=== PATIENT | female | born 1975 | race Two or more races ===

== ENCOUNTER 2023-08-01 09:00 | Emergency (ER) | payer MEDICAID ==
[2023-08-01] VITALS (8 sets, daily range): BP systolic 116–138; BP diastolic 66–85; PULSE 57–68; RESP 16; TEMP 97.8–98.2
[~2023-08-01] VITALS: Ht 162.6 cm; Wt 79.1 kg
[2023-08-01 10:00] LABS: BASOPHILS % (AUTO) 0.8 % (0.0-2.0); EOSINOPHILS % (AUTO) 3.4 % (1.0-6.0); HEMATOCRIT 23.4 % (36-46); LYMPHOCYTES # (AUTO) 1.3 K/uL (1.0-4.8); LYMPHOCYTES % (AUTO) 20.2 % (22.0-44.0); MEAN CORPUSCULAR HEMOGLOBIN 15.4 pg (26.0-34.0); MEAN CORPUSCULAR HGB CONC 28.3 G/dL (31.0-37.0); MEAN CORPUSCULAR VOLUME 55 fL (80-100); MONOCYTES # (AUTO) 0.6 K/uL (0.1-1.0); MONOCYTES % (AUTO) 8.8 % (2.0-9.0); NEUTROPHILS # (AUTO) 4.4 K/uL (1.8-7.7); NEUTROPHILS % (AUTO) 66.8 % (40.0-70.0); PLATELET COUNT (AUTO) 230 K/uL (150-450); RED BLOOD CELL COUNT(AUTO) 4.29 MIL/uL (4.00-5.20); RED CELL DISTRIBUTION WIDTH 18.7 % (11.5-14.5); WHITE BLOOD COUNT (AUTO) 6.6 K/uL (4.5-11.0)
[2023-08-01 10:08] LABS: HEMOGLOBIN 6.6 g/dL (12.0-16.0)
[2023-08-01 10:18] LABS: ANION GAP 4 mmol/L (8-16); CARBON DIOXIDE 29 mmol/L (22-29); CHLORIDE 104 mmol/L (98-107); CREATININE 0.66 mg/dL (0.60-1.30); GLOMERULAR FILTR. RATE CALC > 60 mL/min (>60); GLUCOSE,RANDOM 94 mg/dL (70-110); SODIUM SERUM 137 mmol/L (136-145); TROPONIN I-HIGH SENSITIVITY Less Than 4 ng/L (<51); UREA NITROGEN, BLOOD 11 mg/dL (7-18)
[2023-08-01 10:21] LABS: ALANINE AMINOTRANSFERASE 23 U/L (12-78); ALBUMIN 3.7 g/dL (3.4-5.0); ALKALINE PHOSPHATASE 71 U/L (46-116); ASPARTATE AMINOTRANSFERASE 13 U/L (15-37); BILIRUBIN,TOTAL 0.4 mg/dL (0.1-1.0); CREATINE KINASE, TOTAL ONLY 48 U/L (26-192); TOTAL PROTEIN, SERUM 8.4 g/dL (6.4-8.2)
[2023-08-01 10:26] LABS: B-TYPE NATRIURETIC PEPTIDE 26 pg/mL (0-100)
[2023-08-01 11:02] LABS: PROTHROMBIN TIME 10.4 SEC (9.4-11.6)
[2023-08-01] MEDS ORDERED: SODIUM CHLORIDE 0.9% 250 ML IV ONE (11:05)
== END 2023-08-01 13:37 | disposition home or self-care (01) ==
LOC: EMS 09:01
DX: D64.9 Anemia, unspecified (principal)
CPT/HCPCS: 99285; 36430; 71045; 80053; 82550; 83880; 84484; 84703; 85025; 85610; 85730; 86850; 86900; 86901; 86923; 93005; P9016; J7050